=== PATIENT | male | born 1995 | race Caucasian/White ===

== ENCOUNTER 2019-06-02 23:36 | Emergency (ER) | payer OTHER, SELFPAY ==
[2019-06-02] MEDS ORDERED: Lidocaine 1% w/Epinephrine 1:100K 20 ML VIAL ONE (23:49)
--- NOTE | 2019-06-03 00:07 | RAD ---
XR Hand Lt 3 View STANDARD History: Trauma Comparison: An radiograph 2017 Findings: Similar to the prior examination is a radiopaque foreign object, ovoid in shape, measuring up to 4 mm in size along the medial margin thumb proximal phalanx. Soft tissue laceration with subcutaneous gas within the webbing between the thumb and index finger. No acute fracture. Impression: Soft tissue injury without acute fracture appreciated.
== END 2019-06-03 00:51 | disposition home or self-care (01) ==
LOC: ERS 23:36
DX: S61.012A Laceration without foreign body of left thumb without damage to nail, initial encounter (principal); F17.220 Nicotine dependence, chewing tobacco, uncomplicated; W26.8XXA Contact with other sharp object(s), not elsewhere classified, initial encounter
CPT/HCPCS: 12001